=== PATIENT | male | born 1960 | race Caucasian/White ===

== ENCOUNTER 2019-07-06 06:55 | Day surgery (SDC) | payer MEDICARE, OTHER ==
[~2019-07-06] VITALS: Ht 170.2 cm; Wt 70.5 kg
[~2019-07-06 06:55] MED LIST: GLIMEPIRIDE; HUMALOG; LASIX; OMEPRAZOLE; SOLIQUA; SPIRONOLACTONE
[2019-07-06 07:38] VITALS: Ht 170.2 cm; Wt 70.5 kg
[2019-07-06] MEDS ORDERED: LIDOCAINE 100 MG SYRINGE ONE (08:43)
[2019-07-06] MEDS ORDERED: FENTAnyl 50 MCG/ML VIAL ONE (08:43)
[2019-07-06] MEDS ORDERED: PROPOFOL 40 ML ONE (08:43)
[2019-07-06 08:49] VITALS: BP 130/65; PULSE 82; RESP 18
[2019-07-06 10:00] VITALS: BP 122/72; RESP 18
== END 2019-07-06 10:53 | disposition home or self-care (01) ==
LOC: GIL 06:55
PROVIDERS: ATTEND Internal Medicine Gastroenterology
DX: R19.4 Change in bowel habit (principal); K64.8 Other hemorrhoids; I85.00 Esophageal varices without bleeding; K29.70 Gastritis, unspecified, without bleeding; E11.9 Type 2 diabetes mellitus without complications
CPT/HCPCS: 82962; J2001; J3010